=== PATIENT | female | born 1955 ===

== ENCOUNTER 2025-09-27 11:07 | Emergency (ER) | payer MEDICARE, OTHER ==
[~2025-09-27] VITALS: Ht 157.5 cm; Wt 59.9 kg
[2025-09-27] MEDS ORDERED: NS 1,000 ML IV SCH (11:25)
[2025-09-27] MEDS ORDERED: FentaNYL Citrate 50 MCG/ML 2 ML Injection IV ONE (11:25)
[2025-09-27] MEDS ORDERED: Ondansetron HCl 2 MG / ML 2ML Vial IV ONE (11:25)
[2025-09-27] MEDS ORDERED: IVERMECTIN (12:26)
[2025-09-27] MEDS ORDERED: SOURSOP (12:26)
[2025-09-27] MEDS ORDERED: NS 1,000 ML IV ONE (14:21)
[2025-09-27] MEDS ORDERED: OxyCODONE 10/Acetamin 325 TABLET PO ONE (15:10)
[2025-09-27] MEDS ORDERED: Propofol 10mg/ml 20 ml Vial (Procedural) IV SCH (16:00)
[2025-09-27] MEDS ORDERED: SENNA LAXATIVE8.6 MG PO (16:27)
[2025-09-27] MEDS ORDERED: ONDA4ODT MM (16:27)
[2025-09-27] MEDS ORDERED: POLY500 PO (16:27)
[2025-09-27] MEDS ORDERED: OXAYDO5 M1 PO (16:27)
[2025-09-27 16:28] VITALS: BP 109/82
== END 2025-09-27 17:05 | disposition home or self-care (01) ==
LOC: ER 11:07
DX: S52.572A Other intraarticular fracture of lower end of left radius, initial encounter for closed fracture (principal); S52.615A Nondisplaced fracture of left ulna styloid process, initial encounter for closed fracture; Z91.81 History of falling; W18.30XA Fall on same level, unspecified, initial encounter
CPT/HCPCS: 73110; A9270; J2405; J2704; J3010; J7030